=== PATIENT | female | born 1990 | race Caucasian/White ===

== ENCOUNTER 2019-02-03 10:55 | Emergency (ER) | payer BC ==
[2019-02-03] MEDS ORDERED: NS 0.9% 1000 ML** 1,000 ML IV ONE (11:44)
--- NOTE | 2019-02-03 11:56 | ED ---
HPI Cardiac - HPI Summary HPI Summary: 28 year old female presents to the ED with a chief complaint of chest palpitations starting 2 days ago. She reports an intermittent high heart rate that feels like "thumping". She was resting yesterday when she noticed her heart rate was 160 bpm, according to her watch. She felt SOB and dizziness after mild exertion yesterday, which is not normal. Last night she felt anxious an experienced diaphoresis in her sleep. She reports slight swelling in her hands and a throbbing migraine several days ago that has resolved. Patient denies nausea, vomiting, SOB on rest, recent weight changes, loss of hair, rashes, or hx of blood clots. Patient takes control and is currently on her period. She drinks alcohol daily. No history of recreational drug use. Patient does not smoke tobacco. Medications reviewed. Allergies noted. - History of Current Complaint Chief Complaint: EDDysrhythmPalp Stated Complaint: RAPID HEART RATE Time Seen by Provider: 02/03/19 11:36 Hx Obtained From: Patient Onset/Duration: Started Days Ago, Still Present Timing: Intermittent, Lasting Minutes Pain Intensity: 0 Character: Fast, Pounding Aggravating Factor(s): Exertion Associated Signs and Symptoms: Positive: Anxiety, Headaches, Dizziness, Shortness of Breath, Diaphoresis, Other: - palpitations, tachycardia. Negative : Nausea - Allergy/Home Medications Allergies/Adverse Reactions: Allergies Allergy/AdvReac Type Severity Reaction Status Date / Time No Known Allergies Allergy Verified 02/03/19 11:51 Home Medications: Home Medications Lisdexamfetamine Dimesylate [Vyvanse] 40 mg PO DAILY 02/03/19 [History Confirmed 02/03/19] Norethindrone AC-Eth Estradiol [Fadia 1.5 mg-30 Mcg Tablet] 1 tab PO DAILY 02/03 [History Confirmed 02/03/19] PMH/Surg Hx/FS Hx/Imm Hx Previously Healthy: Yes Cardiovascular History: Denies: Hx Deep Vein Thrombosis Infectious Disease History: No Infectious Disease History: Denies: Traveled Outside the [place] in Last 30 Days - Family History Known Family History: Negative: Renal Disease - Social History Alcohol Use: Daily Alcohol Amount: glass of wine Substance Use Type: Reports: None Hx Tobacco Use: No Smoking Status (MU): Never Smoked Tobacco Review of Systems Positive: Skin Diaphoresis, Other - no hair loss Positive: Palpitations, Other - tachycardia Positive: Shortness Of Breath Negative: Vomiting, Nausea Positive: Edema - hands Negative: Rash Positive: Headache Positive: Anxious All Other Systems Reviewed And Are Negative: Yes Physical Exam - Summary Physical Exam Summary: Constitutional: Well-developed, Well-nourished, Alert. (-) Distressed Skin: Warm, Dry HENT: Normocephalic; Atraumatic Eyes: Conjunctiva normal Neck: Musculoskeletal ROM normal neck. (-) JVD, (-) Stridor, (-) Tracheal deviation Cardio: Rhythm regular, rate ranges from 102 to 142 bpm, Heart sounds normal; Intact distal pulses; Radial pulses are 2+ and symmetric. (-) Murmur Pulmonary/Chest wall: Effort normal. (-) Respiratory distress, (-) Wheezes, (-) Rales Abd: Soft, (-) tenderness, (-) Distension, (-) Guarding, (-) Rebound Musculoskeletal: (-) Edema Lymph: (-) Cervical adenopathy Neuro: Alert, Oriented x3 Psych: Mood and affect Normal Triage Information Reviewed: Yes Vital Signs On Initial Exam: Initial Vitals Temp Pulse Resp BP Pulse Ox 97.9 F 140 22 152/83 100 02/03/19 11:05 02/03/19 11:05 02/03/19 11:05 02/03/19 11:05 02/03/19 11:05 Vital Signs Reviewed: Yes Procedures - Sedation Patient Received Moderate/Deep Sedation with Procedure: No Diagnostics - Vital Signs Vital Signs Temp Pulse Resp BP Pulse Ox 02/03/19 11:05 97.9 F 140 22 152/83 100 - Laboratory Result Diagrams: 02/03/19 11:57 02/03/19 11:57 Lab Statement: Any lab studies that have been ordered have been reviewed, and results considered in the medical decision making process. - EKG 1059 Cardiac Rate: Tachycardia - 128 EKG Rhythm: Sinus Tachycardia Summary of EKG Findings: EKG at 1059 shows sinus tachycardia at 128 bpm. T-wave inversion on 3. An ED physician has reviewed and interpreted this EKG. Disposition - Course Course Of Treatment: Patient is here with tachycardia. Patient was in sinus tachycardia upon arrival. Patient had a normal CBC for no anemia. Patient left joints. Patient had a normal lactate. Patient had negative d-dimer. Patient had negative thyroid studies. Patient's heart rate improved to 1 L of IV fluids. Patient heart rate was 60 bpm when I went to discharge her but then she became tachycardic in the low 100s once I entered the room. I do believe there is a aspect of anxiety with her tachycardia. Patient was given cardiol to follow for possible Holter monitor. - Diagnoses Provider Diagnoses: Tachycardia Discharge ED - Sign-Out/Discharge Documenting (check all that apply): Patient Departure - discharge - Discharge Plan Condition: Stable Disposition: HOME Patient Education Materials: Tachycardia (ED) Referrals: Maximo Bravo DO [Medical Doctor] - Additional Instructions: Follow up with Dr. Bravo, Cardiology, in 2-3 days. Use a heart rate monitor to track abnormalities in heart rate. Avoid caffeine and exertion until your follow up. Return to the Emergency Department if you experience new or worsened symptoms. - Billing Disposition and Condition Condition: STABLE Disposition: Home - Attestation Statements Document Initiated by Scribe: Yes Documenting Scribe: Julio Meek Provider For Whom Gladys is Documenting (Include Credential): Srinivasa Madrid MD. Scribe Attestation: Julio Daugherty, scribed for Srinivasa Madrid MD. on 02/03/19 at 1753. Scribe Documentation Reviewed: Yes Provider Attestation: The documentation as recorded by the scribJulio martin accurately reflects the service I personally performed and the decisions made by , Srinivasa aMdrid MD. Status of Scribe Document: Viewed
[2019-02-03 12:08] LABS: ABS Lymphocytes 1.3 10^3/ul (1.0-4.8); ABS Monocytes 0.4 10^3/ul (0-0.8); ABS Neutrophils 3.8 10^3/ul (1.5-7.7); Eosinophil % 0.8 %; Hematocrit 42 % (35-47); Hemoglobin 14.4 g/dL (12.0-16.0); Lymphocyte % 22.9 %; Mean Corpuscular HGB Conc 34 g/dL (31-36); Mean Corpuscular Hemoglobin 31 pg (27-31); Mean Corpuscular Volume 91 fL (80-97); Mean Platelet Volume 7.5 fL (7.4-10.4); Nucleated Red Blood Cells % 0.2; Platelet Count 196 10^3/uL (150-450); Red Cell Distribution Width 12 % (10-15); White Blood Count 5.6 10^3/uL (3.5-10.8)
[2019-02-03 12:27] LABS: ALT 17 U/L (7-52); AST 24 U/L (13-39); Albumin 3.9 g/dL (3.2-5.2); Albumin/Globulin Ratio 1.5 (1-3); Alkaline Phosphatase 46 U/L (34-104); Anion Gap 5 mmol/L (2-11); BUN/Creatinine Ratio 8.3 (8-20); Blood Urea Nitrogen 7 mg/dL (6-24); C Reactive Protein < 1.00 mg/L (<8.01); CO2 Carbon Dioxide 26 mmol/L (22-32); Chloride 108 mmol/L (101-111); EGFR African American 99.2 (>60); Globulin 2.6 g/dL (2-4); Glucose 104 mg/dL (70-100); Magnesium 1.9 mg/dL (1.9-2.7); Potassium 3.8 mmol/L (3.5-5.0); Sodium 139 mmol/L (135-145); Total Protein 6.5 g/dL (6.4-8.9)
[2019-02-03 12:33] LABS: HCG Pregnancy < 0.60 mIU/mL
[2019-02-03 14:27] VITALS: BP 126/77
== END 2019-02-03 14:26 | disposition home or self-care (01) ==
LOC: ED 10:55
DX: R00.0 Tachycardia, unspecified (principal); Z79.899 Other long term (current) drug therapy
CPT/HCPCS: 36415; 80053; 83605; 83735; 84439; 84443; 84484; 84702; 85025; 85379; 86140; 93005; 96360; 96361; 99283